=== PATIENT | male | born 1990 | race Caucasian/White ===

== ENCOUNTER 2016-11-04 17:03 | Emergency (ER) | payer SELFPAY ==
[~2016-11-04] VITALS: Ht 175.3 cm; Wt 58.2 kg
[2016-11-04] MEDS ORDERED: SODIUM CHLORIDE FLUSH 10ML SYR IVF ONE (17:30)
[2016-11-04] MEDS ORDERED: SODIUM CHLORIDE 0.9% 1,000ML IVBOLUS ONE ×2 (17:30)
[2016-11-04 18:06] LABS: BLOOD UREA NITROGEN 12 mg/dL (7-18)
[2016-11-04] MEDS ORDERED: LIDOCAINE 1%, 20ML ONE ×2 (19:27→19:36)
[2016-11-04] MEDS ORDERED: LIDOCAINE 1%, 20ML SQ ONE (19:30)
[2016-11-04 19:49] VITALS: BP 114/76
== END 2016-11-04 21:34 | disposition home or self-care (01) ==
LOC: ED 19:55
DX: S01.311A Laceration without foreign body of right ear, initial encounter (principal); S09.90XA Unspecified injury of head, initial encounter; E16.2 Hypoglycemia, unspecified; F17.200 Nicotine dependence, unspecified, uncomplicated; F15.10 Other stimulant abuse, uncomplicated; X58.XXXA Exposure to other specified factors, initial encounter; Y93.89 Activity, other specified; Y92.89 Other specified places as the place of occurrence of the external cause; Y99.8 Other external cause status
CPT/HCPCS: 13151; 36415; 70450; 71010; 80048; 82040; 82962; 85025; 93005; 96360; 96361; 99285; J7030

== ENCOUNTER 2016-12-06 19:34 | Emergency (ER) | payer OTHER ==
[~2016-12-06] VITALS: Ht 175.3 cm; Wt 60.0 kg
[2016-12-06 19:43] VITALS: BP 117/82
== END 2016-12-06 20:39 | disposition left against medical advice (07) ==
LOC: ED 20:00
DX: Z53.21 Procedure and treatment not carried out due to patient leaving prior to being seen by health care provider (principal)

== ENCOUNTER 2016-12-07 17:32 | Emergency (ER) | payer OTHER ==
[~2016-12-07] VITALS: Ht 175.3 cm; Wt 61.5 kg
[2016-12-07 17:33] VITALS: BP 102/66
== END 2016-12-07 18:02 | disposition home or self-care (01) ==
LOC: ED 17:56
DX: S01.311D Laceration without foreign body of right ear, subsequent encounter (principal); X58.XXXD Exposure to other specified factors, subsequent encounter
CPT/HCPCS: 99281